=== PATIENT | female | born 1990 | race Caucasian/White ===

== ENCOUNTER → 2018-08-19 | Outpatient (REF) | payer BC | LOC: M SFHCCLAY 09:14 | PROVIDERS: ATTEND Family Medicine | DX: Z12.4 Encounter for screening for malignant neoplasm of cervix (principal) ==

== ENCOUNTER → 2019-02-07 | Outpatient (REF) | payer BC ==
[2019-02-08 12:03] LABS: BASO # 0.1 10^3/uL (0.0-0.2); BASO % 0.7 % (0.0-1.0); EOS # 0.1 10^3/uL (0.0-0.5); EOS % 1.4 % (0.0-3.0); HEMATOCRIT 45.4 % (36.0-47.0); HEMOGLOBIN 14.7 g/dl (12.0-15.5); LYMPH # 2.2 10^3/uL (1.5-5.0); LYMPH % 21.1 % (24.0-44.0); MEAN CORPUSCULAR HEMOGLOBIN 29.4 pg (27.0-33.0); MEAN CORPUSCULAR HGB CONC 32.4 g/dl (32.0-36.5); MEAN CORPUSCULAR VOLUME 90.8 fl (80.0-96.0); MONO # 0.6 10^3/uL (0.0-0.8); MONO % 5.9 % (0.0-5.0); NEUTROPHILS # 7.3 10^3/uL (1.5-8.5); NEUTROPHILS % 70.5 % (36.0-66.0); PLATELET COUNT, AUTOMATED 417 10^3/uL (150-450); WHITE BLOOD COUNT 10.3 10^3/uL (4.0-10.0)
[2019-02-08 12:07] LABS: BLOOD UREA NITROGEN 14 MG/DL (7-18); CALCIUM LEVEL 9.5 MG/DL (8.5-10.1); CARBON DIOXIDE LEVEL 28 MEQ/L (21-32); CHLORIDE LEVEL 105 MEQ/L (98-107); CREATININE FOR GFR 0.87 MG/DL (0.55-1.30); GLOMERULAR FILTRATION RATE > 60.0 (>60); GLUCOSE, FASTING 78 MG/DL (70-100); POTASSIUM SERUM 3.9 MEQ/L (3.5-5.1); SODIUM LEVEL 140 MEQ/L (136-145)
== END ==
LOC: M SFHCCLAY 13:56
PROVIDERS: ATTEND Nurse Practitioner Family
DX: R05 Cough (principal)

== ENCOUNTER → 2019-02-07 | Outpatient (CLI) | payer BC ==
--- NOTE | 2019-02-07 14:28 | REP ---
Clinical: Chronic cough. Technique: PA and lateral. Comparison: None. Findings: Mediastinum and cardiac silhouette are normal. Lung sanchez are relatively clear and without consolidation, effusion, or pneumothorax. Subtle 8 mm nodular density in the right mid lung zone cannot be excluded. Differential diagnosis may include asymmetric nipple shadow. Skeletal structures are intact. Impression: 1. No acute consolidation or effusion. 2. 8 mm nodular density in the right mid lung zone may represent pulmonary nodule versus asymmetric nipple shadow. Consider follow-up x-ray with nipple markers. Electronically Signed by Rogerio Dempsey MD 02/07/2019 02:19 P
== END ==
LOC: M CLY 14:02
PROVIDERS: ATTEND Nurse Practitioner Family
DX: R05 Cough (principal); R91.8 Other nonspecific abnormal finding of lung field

== ENCOUNTER → 2019-02-08 | Outpatient (CLI) | payer BC ==
--- NOTE | 2019-02-08 16:39 | REP ---
Clinical: Abnormal chest x-ray. Technique: PA and lateral. Comparison: 02/07/2019. Findings: Current examination was performed with nipple markers and the previously noted subtle 8 mm density in the right mid/lower lung zone is again identified. Chest CT should be considered for further investigation unless significant prior examinations are available for comparison. Impression: 8 mm nodular density in the right mid/lower lung zone warrants further investigation. Chest CT is recommended unless significant prior examinations are available for comparison. Electronically Signed by Rogerio Dempsey MD 02/08/2019 04:30 P
== END ==
LOC: M CLY 16:10
PROVIDERS: ATTEND Nurse Practitioner Family
DX: R93.89 Abnormal findings on diagnostic imaging of other specified body structures (principal)

== ENCOUNTER → 2019-02-18 | Outpatient (CLI) | payer BC ==
--- NOTE | 2019-02-18 17:15 | REP ---
CT chest without contrast: History: Pulmonary nodule. Comparison chest x-ray February 08, 2019. Findings: There is dense central calcification in a right lower lobe pulmonary nodule. This is consistent with granulomatous calcification. There are tiny granulomatous nodules adjacent to this in the right lower lobe. No other pulmonary nodule is appreciated. There is no evidence of lung mass. No infiltrate is seen. There are granulomatous lymph node calcifications in the right hilus. No evidence of adenopathy is seen. No adrenal lesion is seen. Visualized upper abdominal structures are unremarkable. Impression: Old granulomatous changes right lower lobe and right hilus. No active disease. Electronically Signed by Hakeem Rangel MD 02/18/2019 05:22 P
== END ==
LOC: M RAD 14:25
PROVIDERS: ATTEND Nurse Practitioner Family
DX: R91.1 Solitary pulmonary nodule (principal)

== ENCOUNTER → 2020-04-21 | Outpatient (CLI) | payer SELFPAY | LOC: M LABSMTC 12:28 | PROVIDERS: ATTEND Pediatrics | DX: Z20.822 Contact with and (suspected) exposure to COVID-19 (principal) ==

== ENCOUNTER 2020-07-09 11:49 | Day surgery (SDC) | payer BC, SELFPAY ==
[2020-07-09] VITALS (7 sets, daily range): BP systolic 111–116; BP diastolic 65–76
[~2020-07-09] VITALS: Ht 165.1 cm; Wt 74.4 kg
[2020-07-09 12:40] LABS: BASO % 0.1 % (0.0-1.0); EOS % 0.1 % (0.0-3.0); HEMATOCRIT 44.6 % (36.0-47.0); HEMOGLOBIN 15.1 g/dl (12.0-15.5); LYMPH # 1.1 10^3/uL (1.5-5.0); LYMPH % 5.3 % (24.0-44.0); MEAN CORPUSCULAR HEMOGLOBIN 29.5 pg (27.0-33.0); MEAN CORPUSCULAR HGB CONC 33.9 g/dl (32.0-36.5); MEAN CORPUSCULAR VOLUME 87.1 fl (80.0-96.0); MONO # 0.8 10^3/uL (0.0-0.8); MONO % 4.2 % (2.0-8.0); NEUTROPHILS % 89.8 % (36.0-66.0); PLATELET COUNT, AUTOMATED 412 10^3/uL (150-450); RED BLOOD COUNT 5.12 10^6/uL (4.00-5.40); WHITE BLOOD COUNT 20.1 10^3/uL (4.0-10.0)
[2020-07-09 13:24] LABS: ALBUMIN 4.5 GM/DL (3.2-5.2); ALT/SGPT 16 U/L (12-78); BILIRUBIN,DIRECT 0.2 MG/DL (0.0-0.2); BILIRUBIN,TOTAL 0.5 MG/DL (0.2-1.0); HCG, SERUM QUANTITATIVE 153806 MIU/ML; LIPASE 90 U/L (73-393); TOTAL PROTEIN 8.4 GM/DL (6.4-8.2)
--- NOTE | 2020-07-09 13:53 | REP ---
INDICATION: rlq pain/ 9weeks preg COMPARISON: None. TECHNIQUE: Ultrasound examination of the right lower quadrant using linear and curved array transducers along with color Doppler evaluation of the right ovary. FINDINGS: Ultrasound examination labels a tubular structure in the right lower quadrant as appendix which measures 10.4 mm diameter and is incompressible suspicious for acute appendicitis. Associated rebound tenderness and pain with transducer pressure are noted. The right ovary is normal in appearance without torsion and measures 3.1 x 1.8 x 2.6 cm (RI 0.65). Intrauterine noted ( heart rate = 167 beats per minute). IMPRESSION: Findings suspicious for acute appendicitis. <Electronically signed by Rogerio Dempsey > 07/09/20 [id number]
[2020-07-09 14:09] LABS: BLOOD UREA NITROGEN 8 MG/DL (7-18); CALCIUM LEVEL 10.2 MG/DL (8.5-10.1); CARBON DIOXIDE LEVEL 24 MEQ/L (21-32); CHLORIDE LEVEL 102 MEQ/L (98-107); CREATININE FOR GFR 0.66 MG/DL (0.55-1.30); GLOMERULAR FILTRATION RATE > 60.0 (>60); GLUCOSE, FASTING 101 MG/DL (70-100); POTASSIUM SERUM 3.8 MEQ/L (3.5-5.1); SODIUM LEVEL 135 MEQ/L (136-145)
[2020-07-09] MEDS ORDERED: NS 1,000 ML IV ONE (14:10)
[2020-07-09] MEDS ORDERED: ONDANSETRON 4MG/2ML VIAL IV PRN ×2 (14:20→17:20)
[2020-07-09] MEDS ORDERED: MORPHINE 2 MG/ML 1ML VIAL (J2270) IV PRN (14:20)
[2020-07-09] MEDS ORDERED: ACETAMINOPHEN TAB 650MG DOSE (2X325MG) PO PRN (14:20)
[2020-07-09 14:45] LABS: RSV AMPLIFICATION NEGATIVE (NEGATIVE)
[2020-07-09] MEDS ORDERED: AMPICILLIN SOD/SULBACTAM SOD 3 GM in D5W MINI-BAG PLUS 100 ML IV ONE (14:45)
[2020-07-09] MEDS ORDERED: fentaNYL 100 MCG/2 ML INJECTION (J3010) As Ordered ONE (15:33)
[2020-07-09] MEDS ORDERED: propofoL 200 MG/20 ML VIAL As Ordered ONE (15:33)
[2020-07-09] MEDS ORDERED: LIDOCAINE 2% 100MG/5ML SDV (FOR ANES.) As Ordered ONE (15:34)
[2020-07-09] MEDS ORDERED: ROCURONIUM BROMIDE 50 MG/5 ML VIAL As Ordered ONE (15:34)
[2020-07-09] MEDS ORDERED: dexameTHASONE 4 MG/ML 1ML VIAL (J1100 PER 1MG) As Ordered ONE (15:34)
[2020-07-09] MEDS ORDERED: ONDANSETRON 4MG/2ML VIAL As Ordered ONE (15:34)
[2020-07-09] MEDS ORDERED: LIDOCAINE 1% SDV 30ML VIAL As Ordered ONE (15:40)
[2020-07-09] MEDS ORDERED: BUPIVACAINE HCL 0.25% 30ML VIAL As Ordered ONE (15:41)
[2020-07-09] MEDS ORDERED: UNASYN 3 GM VIAL As Ordered ONE (15:41)
--- NOTE | 2020-07-09 16:00 | HPEPDOC ---
General Surgery H&P Date of Admission Jul 09, 2020 Attending Physician: LAILA MCKEON MD History and Physical CHIEF COMPLAINT: abdominal pain HISTORY OF PRESENT ILLNESS: Patient is a healthy 30-year-old female who presented emergency room today with complaints of days of right upper quadrant abdominal pain which she describes as crampy and around becoming sharp and constant. It is associated with nausea and vomiting. She denies any fevers or chills. Pain was moderately worse yesterday but she continued to have some nausea and was drawn up early this morning. She is also 9 weeks . She denies any ongoing problems during the . She has yet to establish with an crane service technician. ALLERGIES: Please see below. HOME MEDICATIONS: Please see below. PAST MEDICAL HISTORY: 1. Denies any chronic medical problems. PAST SURGICAL HISTORY: No prior abdominal surgeries. She has a previous wisdom tooth extraction PERSONAL/SOCIAL HISTORY: Denies smoking, alcohol use, or recreational drug use. REVIEW OF SYSTEMS: GENERAL: Symptoms are of 2 days duration otherwise she was in her usual state of health. HEENT: Denies blurred vision and double vision. Denies ear symptoms. Denies hoarseness. NECK: Denies any neck pain. CARDIOVASCULAR: Denies chest pain and palpitations. MUSCULOSKELETAL: Denies arthralgias, back pain and thrombophlebitis. SKIN: Denies rash. NEUROLOGIC: Reports migrating histories, none recently. PSYCHIATRIC: Denies anxiety and depression. ENDOCRINE: Denies thyroid disease. HEMATOLOGY/ONCOLOGY: Denies any bleeding or clotting disorder. HEART: Denies any chest pains, palpitations, paroxysmal dyspnea, orthopnea. PULMONARY: Denies chronic cough, dyspnea and wheezing. GASTROINTESTINAL: Denies rectal bleeding, family history of colon cancer, constipation, diarrhea, dysphagia, heartburn and jaundice. GENITOURINARY: Denies dysuria, frequency, hematuria and nocturia. ENDOCRINE: Denies polydipsia, polyphagia, polyuria, heat or cold intolerance. INFECTIOUS: Denies any recent upper respiratory tract infection, UTI, need for use of antibiotics. NUTRITION: Reports fair appetite. PHYSICAL EXAMINATION: VITAL SIGNS: Please see below. GENERAL APPEARANCE: Patient sitting up on the stretcher appears relatively comfortable in no acute distress. Awake, alert, oriented. HEENT: Normocephalic, atraumatic. [place] palpebral conjunctivae. Anicteric sclerae. Lips moist. CHEST: No chest wall abnormalities. Normal respiratory motion/effort. NECK: Supple. No thyromegaly. No lymphadenopathies. LUNGS: Lung sounds are clear to auscultation bilaterally. No wheezing appreciated. HEART: No chest wall abnormalities. Heart rate and rhythm are regular with no murmurs. ABDOMEN: Soft abdomen, nondistended slightly rounded. Mild tenderness to deep palpation over the right lower quadrant area without any rebound or guarding nontender Side of the abdomen.. SKIN: Warm and dry. EXTREMITIES: Extremities have no deformities. No edema identified. NEUROLOGICAL: Awake, alert and oriented. ANCILLARIES: . LABORATORY DATA: Please see below. MICROBIOLOGY: Please see below. IMAGING: Ultrasound of the abdomen Ultrasound examination labels a tubular structure in the right lower quadrant as appendix which measures 10.4 mm diameter and is incompressible suspicious for acute appendicitis. Associated rebound tenderness and pain with transducer pressure are noted. The right ovary is normal in appearance without torsion and measures 3.1 x 1.8 x 2.6 cm (RI 0.65). Intrauterine noted ( heart rate = 167 beats per minute). IMPRESSION AND PLAN: Patient's history consistent with acute appendicitis. A noncompressible tubular structure was found on the right lower quadrant area measuring 10.4 mm in greatest dimension which immediately appendix consistent with acute appendic itis. Not much free fluid is noted to suggest perforation. She does have a markedly elevated white count at 20,000. She is not showing any severe inflammatory response symptoms and mainly has only localized tenderness over the right lower quadrant area. We will proceed with diagnostic laparoscopy and laparoscopic appendectomy. This will be done under general anesthesia. He with special circumstances she is staying weeks , there are concerns of possible side effects to the growth of the fetus as well as labor. Given that even with appendicitis she also has some risks for labor if not treated adequately. Patient's been aware of this. She did not voice much concerns. She has consented to undergo the procedure. Vital Signs Vital Signs Date Time Temp Pulse Resp B/P (MAP) Pulse Ox O2 Delivery O2 Flow Rate FiO2 07/09/20 12:18 07/09/20 11:49 97.2 102 20 100 Room Air Laboratory Data Labs 24H Laboratory Tests 2 07/09/20 12:23: Immature Granulocyte % (Auto) 0.5, Neutrophils (%) (Auto) 89.8H, Lymphocytes (%) (Auto) 5.3L, Monocytes (%) (Auto) 4.2, Eosinophils (%) (Auto) 0.1, Basophils (%) (Auto) 0.1, Neutrophils # (Auto) 18.0H, Lymphocytes # (Auto) 1.1L, Monocytes # (Auto) 0.8, Eosinophils # (Auto) 0.0, Basophils # (Auto) 0.0, Nucleated Red Blood Cells % (auto) 0.0, Anion Gap 9, Glomerular Filtration Rate > 60.0, Calcium Level 10.2H, Total Bilirubin 0.5, Direct Bilirubin 0.2, Aspartate Amino Transf (AST/SGOT) 6L, Alanine Aminotransferase (ALT/SGPT) 16, Alkaline Phosphatase 97, Total Protein 8.4H, Albumin 4.5, Albumin/Globulin Ratio 1.2, Lipase 90, Human Chorionic Gonadotropin, Quant [id number] 07/09/20 12:35: POC Glucose (Misc Panel) 102, POC Sodium (Misc Panel) 134L, POC Potassium (Misc Panel) 3.8, POC Chloride (Misc Panel) 100, POC Total CO2 (Misc Panel) 23.0, POC Blood Urea Nitrogen (Misc Panel 8, POC Ionized Calcium (Misc Panel) 5.0, POC Creatinine (Misc Panel) 0.5L, POC Hematocrit (Misc Panel) 46.0 07/09/20 13:06: Urine Color YELLOW, Urine Appearance HAZY, Urine pH 7.0, Urine Specific [place] 1.019, Urine Protein NEGATIVE, Urine Glucose (UA) NEGATIVE, Urine Ketones TRACEH, Urine Blood NEGATIVE, Urine Nitrite NEGATIVE, Urine Bilirubin NEGATIVE, Urine Urobilinogen 0.2, Urine Leukocyte Esterase TRACEH, Urine WBC (Auto) 3, Urine RBC (Auto) 1, Urine Hyaline Casts (Auto) 0, Urine Bacteria (Auto) NEGATIVE, Urine Squamous Epithelial Cells 7, Urine Mucus (Auto) MODERATE, Urine Sperm (Auto) 07/09/20 13:54: Coronavirus (COVID-19)(PCR) NEGATIVE, Influenza Type A (RT-PCR) NEGATIVE, Influenza Type B (RT-PCR) NEGATIVE, Respiratory Syncytial Virus (PCR) NEGATIVE CBC/BMP Laboratory Tests 07/09/20 12:23 Microbiology Microbiology 07/09/20 Urine Culture, Received Pending Home Medications No Active Prescriptions or Reported Meds Allergies Coded Allergies: No Known Allergies (Unverified , 07/09/20) A-FIB/CHADSVASC A-FIB History Current/History of A-Fib/PAF?: No Current PO Anticoag Therapy: No LAILA MCKEON MD Jul 09, 2020 16:00
[2020-07-09] MEDS: AMPICILLIN SOD/SULBACTAM SOD 3 GM in D5W MINI-BAG PLUS 100 ML IV SCH ×2 (16:26→20:41)
[2020-07-09] MEDS ORDERED: HYDROmorphone HCL 2 MG/ML 1ML VIAL (J1170) As Ordered ONE (16:32)
[2020-07-09] MEDS ORDERED: SUGAMMADEX SODIUM 500 MG/5 ML VIAL (BRIDION) As Ordered ONE (16:32)
[2020-07-09] MEDS ORDERED: ACETAMINOPHEN 1000MG 100ML IV BTL (OFIRMEV) (J0131 PER 10MG) As Ordered ONE (16:41)
[2020-07-09] MEDS ORDERED: LACRILUBE (AKWA TEARS) OPHTH OINT 3.5 GM As Ordered ONE (16:52)
[2020-07-09] MEDS ORDERED: IBUPROFEN 600MG TAB PO PRN (17:10)
--- NOTE | 2020-07-09 17:11 | ROOPDOC ---
[facility] Report Of Operation Report of Operation DATE OF PROCEDURE: 07/09/20 PREPROCEDURE DIAGNOSES: acute appendicitis, early (9 wk aog). POSTPROCEDURE DIAGNOSES: same. PROCEDURE: Laparoscopic appendectomy. SURGEON: Phuc Madrigal MD CAUSTICS LOADER: ANESTHESIA: General Endotracheal Anesthesia. ESTIMATED BLOOD LOSS: Approximately 10 mL. COMPLICATIONS: none. REMARKS: Healthy 30 F who is 9 week presented to the ED with 2 day history of lower abdominal pain and vomiting.. PROCEDURE NOTE: retrocecal appendix which folded over on itself with fibrotic fibers attaching the two limbs. distended distal 2/3rd of the appendix with exudates on the wall of the distal appendix, healthy proximal third. No perforation. No free fluid.. DESCRIPTION OF PROCEDURE: Patient received a dose of Unasyn 3 g IV preoperatively. She was brought to the operating room, placed supine on the table. TEDs and sequential compression device placed on both lower extremities were DVT prophylaxis. Gen. endotracheal anesthesia started. Her left arm tucked, right arm on an arm board. Her abdomen then widely prepped and draped in the usual sterile fashion. We paused for a surgical timeout using both pre-incision safety checklist to verify correct patient, procedure site and additional clinical information prior to beginning the procedure I entered the abdomen through the left upper quadrant to avoid possible injury to the gravid uterus though at 9 weeks this is still inside of the pelvis. The Veress needle was inserted. CO2 insufflation and started to pressure 15 mmHg. Using the same incision a 5 mm optical port was placed under direct vision of laparoscope. On entry, the area underneath the insertion site was inspected and no injury found. She was then repositioned on a mild Trendelenburg tilted towards the left side. There were no abdominal wall adhesions. Visualized portions of the small bowel omentum, liver, gallbladder appears normal. The appendix wasn't visualized yet. The uterus is noted to be gravid appropriate for the age of gestation. There is a small amount of serous fluid in the pelvis but no purulent fluid collection. Working ports were established with an 8 mm port just to the left of the umbilicus and a 5 mm port slightly to the left of the suprapubic area well above the bladder and gravid uterus. Looking over the right lower quadrant area the course of the terminal ileum is noted at its insertion to the cecum. The base of the appendix was found just lateral to the insertion of the terminal ileum and this was coursing in the retrocecal manner. As I rolled the terminal ileum the course of the appendix is noted behind the cecum. The distal two thirds appear inflamed, hardened mesoappendix with exudates on top of the inflamed portion of the appendix. This was difficult to turn anteriorly due to the hardening of the mesoappendix and likewise the appendix seems to take a course first inferiorly then turning onto itself going retrocecal with fibrotic attachments of the appendix. I started to work on those fibrotic attachments freeing them up with the Harmonic scalpel and gradually turning the appendix anteriorly and working from the midportion to the base of the appendix. The mesoappendix was divided midway and a further freed this up from the wall of the appendix until I have reached the base of the appendix. Once the base was reached, this was evaluated. This appears healthy and pliable and does not seem to be involved on the inflamed portion itself. This was ligated with 2 PDS Endoloops and then divided with a Harmonic Scalpel. The base appears healthy this was cauterized. The appendix was delivered in a 5 mm Endo Catch bag and retrieved through the umbilical port site which had to enlarge partly as the appendix coiled within the bag. After extraction there was some pneumoperitoneum and again surveyed the surgical field as well as the whole of the abdomen. I do not find any other abnormality. The PDS Endoloops were in place. No active bleeding noted. The abdomen was then deflated, all ports were removed. The umbilical port fascial incision was closed with 0 Vicryl in a mattress fashion. All skin incisions closed with 4-0 Monocryl in a subcuticular fashion. Steri-Strips gauze dressings and Tegaderm then used to cover the incision. Patient is hemodynamically stable throughout the course. She was promptly awakened, extubated and brought to recovery room in stable condition. PHUC MADRIGAL MD Jul 09, 2020 17:11
[2020-07-09] MEDS ORDERED: oxyCODONE 5MG TAB PO PRN (17:20)
[2020-07-09] MEDS ORDERED: LR 1,000 ML IV SCH (17:20)
[2020-07-09] MEDS ORDERED: METOCLOPRAMIDE INJ 10MG/2ML VIAL (J2765 PER 1) IV PRN (17:20)
[2020-07-09] MEDS ORDERED: fentaNYL 100 MCG/2 ML INJECTION (J3010) IV PRN (17:20)
[2020-07-09] MEDS: LR 1,000 ML IV SCH (17:58)
[2020-07-10 02:00] VITALS: BP 108/62
[2020-07-10] MEDS: AMPICILLIN SOD/SULBACTAM SOD 3 GM in D5W MINI-BAG PLUS 100 ML IV SCH ×2 (03:16→09:09)
[2020-07-10] MEDS: LR 1,000 ML IV SCH (03:16)
[2020-07-10 06:00] VITALS: BP 105/62
[2020-07-10 06:11] LABS: BASO % 0.1 % (0.0-1.0); EOS % 0.1 % (0.0-3.0); HEMATOCRIT 34.7 % (36.0-47.0); LYMPH # 1.6 10^3/uL (1.5-5.0); LYMPH % 10.6 % (24.0-44.0); MEAN CORPUSCULAR HGB CONC 33.4 g/dl (32.0-36.5); MEAN CORPUSCULAR VOLUME 86.8 fl (80.0-96.0); MONO # 0.8 10^3/uL (0.0-0.8); MONO % 5.1 % (2.0-8.0); NEUTROPHILS # 12.3 10^3/uL (1.5-8.5); NEUTROPHILS % 83.5 % (36.0-66.0); PLATELET COUNT, AUTOMATED 328 10^3/uL (150-450); WHITE BLOOD COUNT 14.8 10^3/uL (4.0-10.0)
[2020-07-10 06:21] LABS: HEMOGLOBIN 11.6 g/dl (12.0-15.5)
[2020-07-10 06:38] LABS: BLOOD UREA NITROGEN 7 MG/DL (7-18); CALCIUM LEVEL 8.5 MG/DL (8.5-10.1); CARBON DIOXIDE LEVEL 23 MEQ/L (21-32); CHLORIDE LEVEL 106 MEQ/L (98-107); CREATININE FOR GFR 0.49 MG/DL (0.55-1.30); GLOMERULAR FILTRATION RATE > 60.0 (>60); GLUCOSE, FASTING 97 MG/DL (70-100); POTASSIUM SERUM 3.6 MEQ/L (3.5-5.1); SODIUM LEVEL 136 MEQ/L (136-145)
[2020-07-10 10:00] VITALS: BP 116/67
== END 2020-07-10 13:29 | disposition home or self-care (01) ==
LOC: M ED 11:49 → M SDC 14:17 → ENRESERV 15:02 → M MSPAV 17:50 → M SDC 07-10 13:29
PROVIDERS: ATTEND Surgery
DX: O99.611 Diseases of the digestive system complicating pregnancy, first trimester (principal); K35.890 Other acute appendicitis without perforation or gangrene; Z3A.09 9 weeks gestation of pregnancy
CPT/HCPCS: 36415; 44970; 76857; 80047; 80048; 80076; 81001; 83690; 84702; 85025; 87086; 87631; 88304; 96361; 96365; 96366; 99284; J0131; J1100; J1170; J2405; J3010

== ENCOUNTER → 2020-08-28 | Outpatient (REF) | payer BC ==
[2020-08-28 15:11] LABS: HEMATOCRIT 37.3 % (36.0-47.0); HEMOGLOBIN 12.2 g/dl (12.0-15.5); MEAN CORPUSCULAR HEMOGLOBIN 29.2 pg (27.0-33.0); MEAN CORPUSCULAR HGB CONC 32.7 g/dl (32.0-36.5); MEAN CORPUSCULAR VOLUME 89.2 fl (80.0-96.0); PLATELET COUNT, AUTOMATED 327 10^3/uL (150-450); RED BLOOD COUNT 4.18 10^6/uL (4.00-5.40); WHITE BLOOD COUNT 9.4 10^3/uL (4.0-10.0)
[2020-08-29 09:39] LABS: HIV 1&2 SCREEN CENTAUR NEGATIVE (NEGATIVE)
== END ==
LOC: M PLALAB 12:10
PROVIDERS: ATTEND Advanced Practice Midwife
DX: Z34.01 Encounter for supervision of normal first pregnancy, first trimester (principal); Z3A.00 Weeks of gestation of pregnancy not specified

== ENCOUNTER → 2020-09-13 | Outpatient (CLI) | payer BC ==
--- NOTE | 2020-09-13 12:10 | REP ---
INDICATION: ANATOMY COMPARISON: None. TECHNIQUE: Transabdominal obstetrical ultrasound with color Doppler evaluation. FINDINGS: Examination demonstrates a single live intrauterine in cephalic presentation. motion is identified by technologist. Placenta is noted posterior and grade 0 without evidence for placenta previa or abruption. Amniotic fluid volume is normal. Cervix measures 3.6 cm in length and appears closed.. Gestational age by LMP 18 weeks 4 days with GUILLERMINA 02/10/2021. Gestational age by current measurements 17 weeks 4 days with GUILLERMINA 02/17/2021. FHR equals 156 beats per minute. Estimated weight 196 grams (39th percentile based on age by current measurements). Anatomical assessment demonstrates normal structures including cranium, choroid plexus, cavum, cerebellum/posterior fossa, lungs, stomach, cord insertion/three-vessel cord, kidneys/bladder, and extremities. Limited evaluation of the facial nose/lips, heart/ventricular outflow tracts, diaphragm and spine noted. IMPRESSION: Single live intrauterine in cephalic presentation. Anatomical limitations warrant re-evaluation and follow-up. <Electronically signed by Rogerio Dempsey > 09/13/20 [id number]
== END ==
LOC: M WHC 08:32
PROVIDERS: ATTEND Obstetrics & Gynecology
DX: Z34.82 Encounter for supervision of other normal pregnancy, second trimester (principal)

== ENCOUNTER → 2020-09-14 | Outpatient (CLI) | payer BC | LOC: M WHC 09:42 | PROVIDERS: ATTEND Obstetrics & Gynecology | DX: Z34.82 Encounter for supervision of other normal pregnancy, second trimester (principal); Z3A.18 18 weeks gestation of pregnancy ==

== ENCOUNTER → 2020-09-28 | Outpatient (CLI) | payer BC ==
--- NOTE | 2020-09-30 08:17 | REP ---
INDICATION: F/U ANATOMY COMPARISON: 09/13/2020 TECHNIQUE: Transabdominal obstetrical ultrasound with color Doppler evaluation. FINDINGS: Examination demonstrates a single live intrauterine in breech presentation. motion is identified by technologist. Placenta is noted posterior and grade 0 without evidence for placenta previa or abruption. Amniotic fluid volume is normal. Cervix measures 4.1 cm in length and appears closed.. Selected gestational age: 20 weeks 5 days with GUILLERMINA 02/10/2021. Gestational age by current measurements 20 weeks 1 day with GUILLERMINA 02/14/2021. FHR equals 156 beats per minute. Estimated weight 325 grams (14thpercentile). Anatomical assessment demonstrates normal structures including cranium, choroid plexus, cavum, cerebellum/posterior fossa, facial features, lungs, diaphragm, stomach, cord insertion/three-vessel cord, kidneys/bladder, spine, and extremities. IMPRESSION: Single live intrauterine in breech presentation demonstrating appropriate estimated weight. Evaluation of the heart/ventricular outflow tracts is again limited due to motion and positioning. Remainder of the anatomical assessment is complete and normal. <Electronically signed by Rogerio Dempsey > 09/30/20 [id number]
== END ==
LOC: M WHC 09:30
PROVIDERS: ATTEND Obstetrics & Gynecology
DX: Z34.92 Encounter for supervision of normal pregnancy, unspecified, second trimester (principal); Z3A.18 18 weeks gestation of pregnancy

== ENCOUNTER → 2020-10-29 | Outpatient (CLI) | payer BC ==
--- NOTE | 2020-10-29 14:21 | REP ---
INDICATION: F/U ANATOMY. COMPARISON: 09/28/2020. TECHNIQUE: Real-time sonographic evaluation of the gravid uterus performed. FINDINGS: Estimated gestational age is25 weeks 1 day, EDC 02/10/2021. Today's measurements indicate appropriate growth. Presentation: Cephalic Placenta posterior, grade 1, without evidence of placenta previa. heart rate is recorded at 156 beats per minute. Amniotic fluid is subjectively normal. Closed cervical length is measured at 4.5 cm. Biometry chart: BPD: 60 mm, 24 weeks 4 days, 39th percentile. HC: 226 mm, 24 weeks 5 days, 39th percentile AC: 200 mm, 24 weeks 4 days, 39th percentile Femur length: 45 mm, 25 weeks 0 days, 46th percentile HC to AC ratio: 1.13, normal range 1.01-1.20. Estimated weight: 729g, 24th percentile. anatomy: Cranium: Grossly normal Lateral Ventricles/Choroid Plexus: Grossly normal Posterior Fossa/Cerebellum: Grossly normal Nose/lips/profile: Grossly normal Four chamber heart: Grossly normal Right ventricular outflow tract: Grossly normal Left ventricular outflow tract: Grossly normal Left-sided stomach: Grossly normal Kidneys: Grossly normal Bladder: Grossly normal Cord Insertion: Grossly normal 3 vessel cord: Grossly normal Spine: Previously seen. IMPRESSION: Viable single intrauterine gestation as above. <Electronically signed by Peter Carlisle > 10/29/20 [id number]
== END ==
LOC: M WHC 11:55
PROVIDERS: ATTEND Advanced Practice Midwife
DX: Z34.02 Encounter for supervision of normal first pregnancy, second trimester (principal); Z3A.24 24 weeks gestation of pregnancy

== ENCOUNTER → 2020-11-02 | Outpatient (CLI) | payer BC ==
[2020-11-02 13:30] LABS: HEMATOCRIT 33.9 % (36.0-47.0); HEMOGLOBIN 10.9 g/dl (12.0-15.5); MEAN CORPUSCULAR HEMOGLOBIN 29.4 pg (27.0-33.0); MEAN CORPUSCULAR HGB CONC 32.2 g/dl (32.0-36.5); MEAN CORPUSCULAR VOLUME 91.4 fl (80.0-96.0); PLATELET COUNT, AUTOMATED 325 10^3/uL (150-450); RED BLOOD COUNT 3.71 10^6/uL (4.00-5.40); WHITE BLOOD COUNT 9.9 10^3/uL (4.0-10.0)
== END ==
LOC: M PLALAB 08:46
PROVIDERS: ATTEND Advanced Practice Midwife
DX: Z34.82 Encounter for supervision of other normal pregnancy, second trimester (principal)

== ENCOUNTER → 2021-01-15 | Outpatient (CLI) | payer BC ==
[2021-01-15 10:30] LABS: HEMATOCRIT 31.3 % (36.0-47.0); HEMOGLOBIN 9.7 g/dl (12.0-15.5); MEAN CORPUSCULAR HEMOGLOBIN 26.1 pg (27.0-33.0); MEAN CORPUSCULAR VOLUME 84.1 fl (80.0-96.0); PLATELET COUNT, AUTOMATED 313 10^3/uL (150-450); RED BLOOD COUNT 3.72 10^6/uL (4.00-5.40); WHITE BLOOD COUNT 10.8 10^3/uL (4.0-10.0)
[2021-01-15 11:29] LABS: CREATININE,RANDOM URINE 41.2 MG/DL; TOTAL PROTEIN,RANDOM URINE 14.8 MG/DL (0.0-12.0)
[2021-01-15 11:43] LABS: ALBUMIN 2.6 GM/DL (3.2-5.2); ALT/SGPT 12 U/L (12-78); BILIRUBIN,TOTAL 0.3 MG/DL (0.2-1.0); BLOOD UREA NITROGEN 7 MG/DL (7-18); CALCIUM LEVEL 9.4 MG/DL (8.5-10.1); CARBON DIOXIDE LEVEL 22 MEQ/L (21-32); CHLORIDE LEVEL 111 MEQ/L (98-107); CREATININE FOR GFR 0.55 MG/DL (0.55-1.30); GLOMERULAR FILTRATION RATE > 60.0 (>60); GLUCOSE, FASTING 77 MG/DL (70-100); POTASSIUM SERUM 3.9 MEQ/L (3.5-5.1); SODIUM LEVEL 140 MEQ/L (136-145); TOTAL PROTEIN 6.2 GM/DL (6.4-8.2)
== END ==
LOC: M PLALAB 08:49
PROVIDERS: ATTEND Obstetrics & Gynecology
DX: Z34.03 Encounter for supervision of normal first pregnancy, third trimester (principal); Z3A.00 Weeks of gestation of pregnancy not specified

== ENCOUNTER → 2021-01-16 | Outpatient (CLI) | payer BC | LOC: M LABSMTC 11:19 | PROVIDERS: ATTEND Specialist | DX: Z20.822 Contact with and (suspected) exposure to COVID-19 (principal) ==

== ENCOUNTER 2021-01-20 07:27 | Inpatient (IN) | payer BC ==
[~2021-01-20] VITALS: Ht 165.1 cm; Wt 82.4 kg
[2021-01-20] VITALS (23 sets, daily range): BP systolic 108–138; BP diastolic 58–92
[2021-01-20] MEDS ORDERED: COLA100C5 PO (07:44)
[2021-01-20] MEDS ORDERED: PRENTAB9 PO (07:44)
[2021-01-20] MEDS ORDERED: IRON65TA2 PO (07:44)
[2021-01-20] MEDS ORDERED: HOME MED LIST COMPLETE! XX SCH (07:45)
[2021-01-20] MEDS ORDERED: LACTATED RINGER'S 1000 ML IV STA (09:44)
[2021-01-20] MEDS ORDERED: CARBOPROST TROMETHAMINE 250 MCG/ML AMP IM PRN (09:45)
[2021-01-20] MEDS: LR 1,000 ML IV SCH ×3 (09:45→23:40)
[2021-01-20] MEDS ORDERED: LIDOCAINE 1% MDV 20ML VIAL INFIL PRN (09:45)
[2021-01-20] MEDS ORDERED: TRANEXAMIC ACID INJection 1,000 MG in NS 100 ML IV PRN (09:45)
[2021-01-20] MEDS: miSOPROStol 50MCG 1/2 TABLET SL SCH ×4 (09:56→22:00)
--- NOTE | 2021-01-20 10:07 | HPEPDOC ---
Obstetrical History & Physical General Date of Admission Jan 20, 2021 at 07:27 History of Present Illness 30-year-old at 37+0 weeks gestation. Presents for a scheduled induction o f labor. Indication for induction: Preeclampsia without severe features She denies vaginal bleeding, loss of fluid or painful, frequent uterine contractions. She reports regular movement. She denies headache, visual changes, right upper quadrant pain, shortness of breath or chest pain. course: Preeclampsia without severe features, diagnosed by elevated blood pressure and proteinuria 0.359. Mild anemia PMH: Hypoglycemic events 2010. Catamenial headaches SH: [place] teeth, appendectomy Meds: vitamin, ferrous sulfate All: NKDA UNIFORM MAKER: No STI or dysplasia OB: G1 Sochx: No tobacco, alcohol or drug use FamHx: Sister has osteogenesis imperfecta/" mild", father diabetes, mother thyroid disease labs: Blood type A+, antibody screen negative, HepBsAg neg, HIV neg, rubella immune, Hep C antibody negative, RPR nonreactive, CT/GC neg, urine culture negative, 1 hour glucose challenge test 94, GBS negative Imaging: No placental abnormalities or anomalies Past Medical History Allergies Coded Allergies: No Known Allergies (Unverified , 07/09/20) Medications Scheduled Docusate Sodium (Colace) 100 Mg Capsule, 100 MG PO DAILY Ferrous Sulfate (Iron) 325 Mg Tablet, 1 TAB PO DAILY No.137/Iron/Folic Acd ( Vitamin Tablet) 1 Each Tablet, 1 TAB PO DAILY Physical Examination Physical Examination GENERAL: Alert and oriented times three. ABDOMEN: Gravid and non-tender to touch. HEART RATE: Regular rate and rhythm. LUNGS: Clear to auscultation (CTA). EXTREMITIES: No edema. No clonus.. SVE: 1 cm 25% effacement -3 station cephalic intact no bloody show anterior soft EFM: Category 1 [place]: Irregular contractions/rare Vital Signs/I&O Vital Signs Date Time Temp Pulse Resp B/P (MAP) Pulse Ox O2 Delivery O2 Flow Rate FiO2 01/20/21 09:18 82 18 108/59 (75) 01/20/21 08:19 98 01/20/21 07:48 98.0 Laboratory Data 24H LABS Laboratory Tests 2 01/20/21 07:37: Serology Scanned Report Hepatitis B Testing Assessment/Plan Assessment 30-year-old G1, P0 at 37+0 weeks gestation with preeclampsia without severe features. Reassuring status. Maternal status is stable currently normotensive. Plan Admit and orient. Labs/including preeclamptic profile and intravenous (IV) per unit protocol. Counseled on induction of labor; start with cervical ripening Treat severe range blood pressures as indicated Anticipate . C-S as appropriate. VINCENT DUBOIS DO Jan 20, 2021 10:07
[2021-01-20] MEDS ORDERED: CALCIUM CARBONATE 500 MG CHEW U/D PO PRN (10:10)
[2021-01-20 10:32] LABS: HEMATOCRIT 30.1 % (36.0-47.0); HEMOGLOBIN 9.5 g/dl (12.0-15.5); MEAN CORPUSCULAR HEMOGLOBIN 26.5 pg (27.0-33.0); MEAN CORPUSCULAR HGB CONC 31.6 g/dl (32.0-36.5); MEAN CORPUSCULAR VOLUME 84.1 fl (80.0-96.0); PLATELET COUNT, AUTOMATED 317 10^3/uL (150-450); RED BLOOD COUNT 3.58 10^6/uL (4.00-5.40); WHITE BLOOD COUNT 8.9 10^3/uL (4.0-10.0)
[2021-01-20 10:41] LABS: ALT/SGPT 11 U/L (12-78); BILIRUBIN,TOTAL 0.2 MG/DL (0.2-1.0); CREATININE FOR GFR 0.55 MG/DL (0.55-1.30); GLOMERULAR FILTRATION RATE > 60.0 (>60); LDH LACTATE DEHYDROGENASE 157 U/L (84-246); URIC ACID 3.8 MG/DL (2.6-6.0)
[2021-01-20] MEDS: FAMOTIDINE 20 MG TAB PO SCH (11:17)
[2021-01-20] MEDS ORDERED: BUTORPHANOL 2 MG/ML INJ (J0595) IV ONE (20:30)
[2021-01-20] MEDS ORDERED: PROMETHAZINE INJ 25 MG/ML VIAL (J2550) IV ONE (20:30)
[2021-01-20] MEDS ORDERED: OXYTOCIN DRIP 30 UNITS in IV 1 EA IV SCH ×2 (20:35→21:35)
--- NOTE | 2021-01-20 21:38 | IPNPDOC ---
Obstetrical Progress Note Date of Service Jan 20, 2021 Subjective Patient feeling mildly uncomfortable with contractions since the misoprostol. Brina frequently. No VB/LOF. No BRANHAM, visual changes, RUQ pain, sob,cp. Normotensive. Objective Vital Signs Date Time Temp Pulse Resp B/P (MAP) Pulse Ox O2 Delivery O2 Flow Rate FiO2 01/20/21 20:02 93 18 121/75 (90) 01/20/21 18:15 98.5 01/20/21 09:57 99 Assessment Heart Rate Tracing: Category I Tocometer Contractions: Yes Frequency: every 2-5 min. Sterile Vaginal Examination Dilation: 1cm Effacement (%): 50% Station: -3 Cervical Consistency: Soft Cervical Position: Anterior Postion/Presentation: Cephalic presentation Assessment and Plan Status: Reassuring Additional Comments Reviewed cervical ripening options (r/b/a/i ). Pt elected to proceed with Cook balloon. Cook Balloon inserted with ease: 60ml/40ml. Will start pitocin when contractions from miso become less frequent. VINCENT DUBOIS DO Jan 20, 2021 21:38
[2021-01-21] VITALS (48 sets, daily range): BP systolic 110–173; BP diastolic 53–100
--- NOTE | 2021-01-21 03:05 | IPNPDOC ---
Obstetrical Progress Note Date of Service Jan 21, 2021 Subjective Patient only mildly uncomfortable with contractions. Cook balloon out at 2328. +bloody show, no LOF Objective Vital Signs Date Time Temp Pulse Resp B/P (MAP) Pulse Ox O2 Delivery O2 Flow Rate FiO2 01/21/21 00:51 69 17 134/76 (95) 01/20/21 23:40 97.6 01/20/21 09:57 99 Assessment Heart Rate Tracing: Category I Tocometer Contractions: Yes Frequency: every 3-7 min. (Pit at 8mU/min) Sterile Vaginal Examination Dilation: 4 cm Effacement (%): 50% Station: -3 Cervical Consistency: Soft Cervical Position: Anterior Postion/Presentation: Cephalic presentation Assessment and Plan Status: Reassuring Additional Comments Reassuring maternal and status. Continue Pitocin . Consider AROM next SVE if unchanged. VINCENT DUBOIS DO Jan 21, 2021 03:05
[2021-01-21] MEDS ORDERED: FENTANYL 2MCG/ML ROPIVACAINE 0.2% IN 0.9% NACL 100ML IVBAG As Ordered ONE (03:14)
[2021-01-21] MEDS: LR 1,000 ML IV SCH ×2 (03:58→09:51)
[2021-01-21] MEDS: FENTANYL/ROPIVACAINE/NACL BAG 100 ML EPIDURAL SCH ×2 (05:09→11:53)
[2021-01-21] MEDS ORDERED: diphenhydrAMINE 50MG/ML VIAL (J1200) IV PRN (05:10)
[2021-01-21] MEDS ORDERED: LACTATED RINGER'S 1000 ML IV PRN (05:10)
[2021-01-21] MEDS ORDERED: ePHEDrine SULFATE 25 MG/5 ML(5MG/ML) SYRINGE IV PRN (05:10)
[2021-01-21] MEDS ORDERED: EPIDURAL/PCA KEYS XX PRN (05:10)
[2021-01-21] MEDS ORDERED: NALOXONE INJ 0.4MG/1ML VIAL (J2310 PER 1MG) IV PRN (05:10)
[2021-01-21] MEDS ORDERED: ONDANSETRON 4MG/2ML VIAL IV PRN (05:10)
[2021-01-21] MEDS ORDERED: REFRIGERATOR IV KEYS XX PRN (05:10)
[2021-01-21] MEDS ORDERED: EPIDURAL COMMENT XX SCH (05:10)
[2021-01-21] MEDS: FAMOTIDINE 20 MG TAB PO SCH (09:51)
--- NOTE | 2021-01-21 10:54 | IPNPDOC ---
Obstetrical Progress Note Date of Service Jan 21, 2021 Subjective resting comfortably with epidural Objective Vital Signs Date Time Temp Pulse Resp B/P (MAP) Pulse Ox O2 Delivery O2 Flow Rate FiO2 01/21/21 06:22 97.2 01/21/21 06:08 69 18 155/82 (106) 01/20/21 09:57 99 Assessment Heart Rate (FHR): 130 Variability: Moderate Accelerations: Positive Decelerations: None Heart Rate Tracing: Category I Tocometer Contractions: Yes Frequency: every 1-3 min. Strength: palpated as strong Sterile Vaginal Examination Dilation: 4 cm Effacement (%): 70% Station: -1 Cervical Consistency: Soft Cervical Position: Anterior Postion/Presentation: Cephalic presentation Assessment and Plan Age: 30 : 1 Term: 0 Pre-term: 0 Abortions: 0 Livin EGA at Admission: 37 Weeks & Days 37.1 Status: Reassuring Group B Streptococcus: Negative Anticipate: Vaginal Delivery Additional Comments Pitocin at 14 mu/min. AROM after consent from patient at 1045 with a large amount of clear fluid. ROBYN DURAN CNM Jan 21, 2021 10:54
--- NOTE | 2021-01-21 13:16 | IPNPDOC ---
Obstetrical Progress Note Date of Service Jan 21, 2021 Subjective laboring comfortably with epidural, complaining of increase in pelvic pressure Objective Vital Signs Date Time Temp Pulse Resp B/P (MAP) Pulse Ox O2 Delivery O2 Flow Rate FiO2 01/21/21 10:56 98.4 80 18 110/57 (74) 01/20/21 09:57 99 Assessment Heart Rate (FHR): 135 Variability: Moderate Accelerations: Positive Decelerations: Variable Heart Rate Tracing: Category II Tocometer Contractions: Yes Frequency: regular Strength: palpated as strong Sterile Vaginal Examination Dilation: complete Effacement (%): 100% Station: +1 Cervical Position: Anterior Postion/Presentation: Cephalic presentation Assessment and Plan Age: 30 : 1 Term: 0 Pre-term: 0 Abortions: 0 Livin EGA at Admission: 37 Weeks & Days 37.1 Status: Reassuring Group B Streptococcus: Negative Anticipate: Vaginal Delivery Additional Comments Pitocin at 12 mu/min. Patient repositioned. ROBYN DURAN CNM Jan 21, 2021 13:16
--- NOTE | 2021-01-21 15:20 | DNPDOC ---
[facility] Delivery Note Delivery Note DATE OF DELIVERY: 01/21/2021 at 1404 PREDELIVERY DIAGNOSIS: 37-1/7 weeks' gestation and IOL for preeclampsia without severe features POST DELIVERY DIAGNOSIS: Delivered. PROCEDURE: Spontaneous vaginal delivery. MIXER RUNNER: Robyn Ramsey CNM and DAMARIS Munson ANESTHESIA: epidural. ESTIMATED BLOOD LOSS: 450 mL. FINDINGS: 6 pound 1 ounce, 2750 gram female infant, Score 9/9, right compound hand. DELIVERY SUMMARY: Lorne is a 30-year-old 1 now para 1-0-0-1 who was admitted to labor and delivery for IOL. She requested an epidural for pain management. She was induced wth 50 mcg misoprostol, early bulb, and IV pitocin up at 2355. She had AROM with large amount of clear fluid at 1045. She progressed to complete at 1306. She began pushing at 1345 and pushed to a living female in the NATHALIE position with restitution to ROT. Right compound hand is noted. The anterior shoulder was delivered with gentle downward traction and the corpus followed. placed skin to skin on the maternal abdomen, active and crying. Cord clamped after two minutes and cut by FOB. Placenta delivered spontaneously via [place] at 1409. Uterine hemostasis was achieved via rapid infusion of IV Pitocin and fundal massage. The vagina, cervix, and perineum was inspected and found to have bilateral labial tears, periurethral tear, and first degree perineal laceration repaired with 3.[address]-1 and the periurethral tear was repaired with 4.0 vicryl SH. Mom plans to breastfeed. Mom and dad have named her Yessi. All counts of instruments and sponges are correct. Both mom and baby are in stable condition. ROBYN RAMSEY CNM Jan 21, 2021 15:20
[2021-01-21] MEDS ORDERED: RHOGAM 300 MCG (1500 IU) INJ (J2790) IM SCH (16:35)
[2021-01-21] MEDS ORDERED: ACETAMINOPHEN TAB 650MG DOSE (2X325MG) PO PRN (16:35)
[2021-01-21] MEDS ORDERED: ANUSOL HC CREAM 30GM TOP PRN (16:35)
[2021-01-21] MEDS ORDERED: DIBUCAINE 1% OINTMENT 30GM TOP PRN (16:35)
[2021-01-21] MEDS ORDERED: DOCUSATE SODIUM 100MG CAPSULE PO PRN (16:35)
[2021-01-21] MEDS ORDERED: MEASLES,MUMPS,RUBELLA VACCINE INJ (MMR-II) (90707) SC SCH (16:35)
[2021-01-21] MEDS ORDERED: IBUPROFEN 600MG TAB PO PRN (16:35)
[2021-01-21] MEDS: IBUPROFEN 800 MG TAB PO PRN (16:46)
[2021-01-21] MEDS: ACETAMINOPHEN 500 MG TAB PO PRN (19:33)
[2021-01-22] VITALS (7 sets, daily range): BP systolic 113–134; BP diastolic 65–81
[2021-01-22] MEDS: PRENATAL VITAMINS CHEWABLE TABLET PO SCH (09:02)
[2021-01-22] MEDS: ACETAMINOPHEN 500 MG TAB PO PRN ×2 (09:02→20:16)
--- NOTE | 2021-01-22 11:47 | IPNPDOC ---
Progress Note Date of Service: Jan 22, 2021 Day#: 1 Progress Note SUBJECT: Patient is a 30-year-old G 1 P 1 status post uncomplicated spontaneous vaginal delivery at 37-0/7 weeks' doing well day #1. She has been ambulating, voiding spontaneously without issue and tolerating regular diet. Breast feeding without issue. Reports lochia is like a normal period. Patient is ambulating well. Reports some cramping, well controlled with medication. Voiding and ambulating without difficulty. Denies headaches vision changes or right upper quadrant pain OBJECTIVE: VITAL SIGNS: Within normal limits, afebrile. Alert and oriented times three. Breath sounds clear to auscultation. Heart rate: Regular rate and rhythm, no murmurs, rubs or gallops. Abdomen: Fundus firm at U-2. Soft, NTTP. Minimal to moderate lochia. ASSESSMENT: Patient is a 30-year-old G 1 P 1 status post uncomplicated spontaneous vaginal delivery after presenting to labor and delivery for induction of labor secondary to preeclampsia without severe features. Doing well on day 1. Vitals within normal limits, afebrile, hemodynamically stable with no evidence of infection. PLAN: 1. Discharge to home tomorrow. 2. Tylenol and Motrin for pain. 3. Encourage breast feeding and ambulation. 4. No s/sx of PRC VS, I&O, 24H, Fishbone Vital Signs/I&O Vital Signs Date Time Temp Pulse Resp B/P (MAP) Pulse Ox O2 Delivery O2 Flow Rate FiO2 01/22/21 10:00 97.8 87 16 116/77 (90) 98 Room Air I&O- Last 24 Hours up to 6 AM 01/22/21 05:59 Intake Total 1887 ml Output Total 1645 ml Balance 242 ml ZEUS HERMOSILLO MD Jan 22, 2021 11:47
[2021-01-23 01:57] VITALS: BP 129/86
[2021-01-23] MEDS: IBUPROFEN 800 MG TAB PO PRN (04:45)
[2021-01-23 06:22] VITALS: BP 140/90
[2021-01-23] MEDS: ACETAMINOPHEN 500 MG TAB PO PRN ×2 (08:28→17:43)
[2021-01-23] MEDS: PRENATAL VITAMINS CHEWABLE TABLET PO SCH (08:28)
[2021-01-23 10:00] VITALS: BP 130/75
[2021-01-23] MEDS ORDERED: INFLUENZA QUADRIVALENT PF VACCINE 0.5ML SYRINGE IM ONE (10:30)
[2021-01-23 14:00] VITALS: BP 114/78
== END 2021-01-23 18:29 | disposition home or self-care (01) | DRG 560 ==
LOC: M LDI 07:27 → M OBS 01-21 17:00
PROVIDERS: ADMIT Obstetrics & Gynecology; ATTEND Obstetrics & Gynecology
PROC: 3E033VJ Introduction of Other Hormone into Peripheral Vein, Percutaneous Approach (ICD-10-PCS; 2021-01-20)
PROC: 3E0DXGC Introduction of Other Therapeutic Substance into Mouth and Pharynx, External Approach (ICD-10-PCS; 2021-01-20)
PROC: 10E0XZZ Delivery of Products of Conception, External Approach (ICD-10-PCS; principal; 2021-01-21)
PROC: 10907ZC Drainage of Amniotic Fluid, Therapeutic from Products of Conception, Via Natural or Artificial Opening (ICD-10-PCS; 2021-01-21)
PROC: 0HQ9XZZ Repair Perineum Skin, External Approach (ICD-10-PCS; 2021-01-21)
DX: O14.94 Unspecified pre-eclampsia, complicating childbirth (principal); O32.6XX0 Maternal care for compound presentation, not applicable or unspecified; Z3A.37 37 weeks gestation of pregnancy; Z37.0 Single live birth; O70.0 First degree perineal laceration during delivery

== ENCOUNTER → 2025-03-29 | Outpatient (CLI) | payer OTHER ==
[~2025-03-29] MED LIST: COLA100C5 PO; IRON65TA2 PO; PRENTAB9 PO
[2025-03-29 18:13] LABS: LDH LACTATE DEHYDROGENASE 132 U/L (120-246)
[2025-03-29 18:15] LABS: ALT/SGPT 13 U/L (7.0-40); AST/SGOT 12 U/L (<34); CREATININE FOR GFR 0.53 MG/DL (0.55-1.30); GLOMERULAR FILTRATION RATE > 90.0 (>60)
[2025-03-29 18:19] LABS: PLATELET COUNT, AUTOMATED 394 10^3/uL (150-450)
[2025-03-29 18:39] LABS: TOTAL PROTEIN,RANDOM URINE 9.3 MG/DL (0.0-14.0)
[2025-03-29 18:48] LABS: HIV 1&2 SCREEN NEGATIVE (NEGATIVE)
[2025-03-29 18:57] LABS: HEPATITIS C VIRUS ABY INDEX 0.06 INDEX (<0.8)
[2025-03-29 19:23] LABS: Trichomonas vaginalis (AMP) NOT DETECTED (NEGATIVE)
[2025-03-29 19:46] LABS: GC DNA AMPLIFICATION NEGATIVE (NEGATIVE)
== END ==
LOC: M PLALAB 13:50
PROVIDERS: ATTEND Obstetrics & Gynecology
DX: O09.291 Supervision of pregnancy with other poor reproductive or obstetric history, first trimester (principal); Z3A.00 Weeks of gestation of pregnancy not specified